=== PATIENT | female | born 1970 | race Caucasian/White ===

== ENCOUNTER → 2020-10-07 | Outpatient (CLI) | payer BC ==
--- NOTE | 2020-10-07 08:10 | CT ---
EXAMINATION TYPE: CT chest wo con DATE OF EXAM: 10/07/2020 COMPARISON: NONE HISTORY: Solitary lung nodule CT DLP: 103.10 mGycm. Automated Exposure Control for Dose Reduction was Utilized. TECHNIQUE: CT scan of the thorax is performed without IV contrast. FINDINGS: LUNGS: [id number] biapical pleural/parenchymal scarring extending posteriorly. No suspicious no dules or masses. There is no pleural effusion or pneumothorax seen. The tracheobronchial tree is p atent. MEDIASTINUM: Lack of IV contrast is noted to limit evaluation for mediastinal and especially hilar ad enopathy. There are no definitive greater than 1 cm noncalcified hilar or mediastinal lymph nodes. E nlarged calcified pericarinal 3.1 x 1.8 cm mass or lymph node is present. No cardiomegaly or pericard ial effusion is seen. OTHER: S-shaped scoliosis. IMPRESSION: There is 3.1 x 1.8 cm calcified paracarinal mass or lymph node favor benign in etiology. No suspicious parenchymal nodules or masses.
== END | disposition home or self-care (01) ==
LOC: RADCTMAIN 07:11
PROVIDERS: ATTEND Family Medicine
DX: R91.1 Solitary pulmonary nodule (principal)
CPT/HCPCS: 71250